=== PATIENT | male | born 1990 | race Caucasian/White ===

== ENCOUNTER 2016-08-09 18:02 | Emergency (ER) | payer OTHER ==
[2016-08-09 18:08] VITALS: RESP 16
--- NOTE | 2016-08-09 18:34 | ED ---
Psych HPI - General Chief Complaint: Psychiatric Symptoms Stated Complaint: suicidal Time Seen by Provider: 08/09/16 18:10 Source: patient, RN notes reviewed Mode of arrival: ambulatory - History of Present Illness Initial Comments: This is a 25-year-old male history depression and states she's feeling suicidal and depressed today. He states he just recently came off of locked down and couldn't see his sister or her kids. He denies any drugs or alcohol at this time he states he has a long history depression he does not seem to have a plan at this time. He states it's been especially bad last 2 weeks. MD Complaint: suicidal ideation, feels depressed - Related Data Home Medications Medication Instructions Recorded Confirmed DULoxetine HCL [Cymbalta] 60 mg PO DAILY 08/09/16 08/09/16 Gabapentin [Neurontin] 600 mg PO TID 08/09/16 08/09/16 HYDROcodone/APAP 5-325MG [[place] 1 tab PO Q8H PRN 08/09/16 08/09/16 5-325] Meloxicam [Mobic] 7.5 mg PO BID 08/09/16 08/09/16 PARoxetine [Paxil] 20 mg PO DAILY 08/09/16 08/09/16 Topiramate [Topamax] 50 mg PO BID PRN 08/09/16 08/09/16 clonazePAM [KlonoPIN] 0.5 mg PO Q12H 08/09/16 08/09/16 Allergies Allergy/AdvReac Type Severity Reaction Status Date / Time No Known Allergies Allergy Verified 08/09/16 18:08 Review of Systems ROS Statement: Those systems with pertinent positive or pertinent negative responses have been documented in the HPI. ROS Other: All systems not noted in ROS Statement are negative. Past Medical History Past Medical History: Fibromyalgia Additional Past Medical History / Comment(s): chronic back and neck pain History of Any Multi-Drug Resistant Organisms: None Reported Past Surgical History: No Surgical Hx Reported Past Anesthesia/Blood Transfusion Reactions: Unable to Obtain Past Psychological History: Depression Smoking Status: Current every day smoker Past Alcohol Use History: Occasional Past Drug Use History: Marijuana Additional Drug Use History / Comment(s): daily - Past Family History Mother Family Medical History: Cancer General Exam - General Exam Comments Initial Comments: This is a well-developed well-nourished awake alert oriented times 3 male Limitations: no limitations General appearance: alert, in no apparent distress Head exam: Present: atraumatic, normocephalic, normal inspection Eye exam: Present: normal appearance, PERRL, EOMI. Absent: scleral icterus, conjunctival injection, periorbital swelling ENT exam: Present: normal exam, mucous membranes moist Neck exam: Present: normal inspection. Absent: tenderness, meningismus, lymphadenopathy Respiratory exam: Present: normal lung sounds bilaterally. Absent: respiratory distress, wheezes, rales, rhonchi, stridor Cardiovascular Exam: Present: regular rate, normal rhythm, normal heart sounds. Absent: systolic murmur, diastolic murmur, rubs, gallop, clicks GI/Abdominal exam: Present: soft, normal bowel sounds. Absent: distended, tenderness, guarding, rebound, rigid Extremities exam: Present: normal inspection, full ROM, normal capillary refill. Absent: tenderness, pedal edema, joint swelling, calf tenderness Back exam: Present: normal inspection Neurological exam: Present: alert, oriented X3, CN II-XII intact Psychiatric exam: Present: depressed, flat affect, suicidal ideation Skin exam: Present: warm, dry, intact, normal color. Absent: rash Course Vital Signs 08/09/16 08/09/16 18:06 21:33 Temperature 97.9 F Pulse Rate 86 67 Respiratory 16 16 Rate Blood Pressure 130/79 124/59 O2 Sat by Pulse 100 Oximetry Medical Decision Making - Medical Decision Making Patient was evaluated by [facility] she'll be discharged he currently is on aerosol himself or anyone else. He is not suicidal - Lab Data Lab Results 08/09/16 Range/Units 19:00 Urine Opiates Screen Not Detected (NotDetected) Ur Oxycodone Screen Not Detected (NotDetected) Urine Methadone Screen Not Detected (NotDetected) Ur Propoxyphene Screen Not Detected (NotDetected) Ur Barbiturates Screen Not Detected (NotDetected) U Tricyclic Antidepress Not Detected (NotDetected) Ur Phencyclidine Scrn Not Detected (NotDetected) Ur Amphetamines Screen Not Detected (NotDetected) U Methamphetamines Scrn Not Detected (NotDetected) U Benzodiazepines Scrn Not Detected (NotDetected) Urine Cocaine Screen Not Detected (NotDetected) U Marijuana (THC) Screen Not Detected (NotDetected) Disposition Clinical Impression: Adjustment reaction Disposition: HOME SELF-CARE Condition: Good Instructions: Anxiety (ED)
[2016-08-09 23:45] VITALS: BP 130/76; PULSE 68; TEMP 97.3
== END 2016-08-09 23:58 | disposition home or self-care (01) ==
LOC: EC 18:02
DX: F43.20 Adjustment disorder, unspecified (principal); F32.9 Major depressive disorder, single episode, unspecified; R45.851 Suicidal ideations; M79.7 Fibromyalgia; F17.200 Nicotine dependence, unspecified, uncomplicated; Z79.899 Other long term (current) drug therapy
CPT/HCPCS: 80306; 82075; 99285

== ENCOUNTER 2016-08-12 22:30 | Emergency (ER) | payer OTHER ==
[2016-08-12 22:38] VITALS: RESP 18
[2016-08-13] MEDS ORDERED: AMOXIC-POT CLAV 875MG STARTER 2 EACH TABLET PO STA (00:03)
[2016-08-13] MEDS ORDERED: ACETAMINOPHEN TAB 500 MG TAB PO STA (00:03)
[2016-08-13] MEDS ORDERED: IBUPROFEN 600 MG STARTER PACK 4 TAB BTL PO STA (00:03)
[2016-08-13] MEDS ORDERED: FLUTICASONE 50MCG/SPRAY NASAL 16GM EA NOSTRIL STA (00:03)
--- NOTE | 2016-08-13 00:08 | ED ---
General Adult HPI - General Chief complaint: Fever Stated complaint: Dehydration/Sick Time Seen by Provider: 08/12/16 23:45 Source: patient, RN notes reviewed Mode of arrival: ambulatory Limitations: no limitations - History of Present Illness Initial comments: Patient 25-year-old male who presents emergency room today with a chief complaint of cough congestion and increased rhinorrhea in bilateral ear pain over the last 3 days. Patient does admit to a sore throat as well. States it hurts with swallows. Patient does admit to cough with positive sputum production. admits to feeling dizzy lightheaded at times. Denies any other complaints. patient unaware temperature at triage.patient admits to bodyaches. Patient denies any recent shortness of breath, chest pain, back pain, abdominal pain, nausea or vomiting, numbness or tingling, dysuria or hematuria, constipation or diarrhea, headaches or visual changes, or any other complaints. - Related Data Home Medications Medication Instructions Recorded Confirmed DULoxetine HCL [Cymbalta] 60 mg PO DAILY 08/09/16 08/09/16 Gabapentin [Neurontin] 600 mg PO TID 08/09/16 08/09/16 HYDROcodone/APAP 5-325MG [[place] 1 tab PO Q8H PRN 08/09/16 08/09/16 5-325] Meloxicam [Mobic] 7.5 mg PO BID 08/09/16 08/09/16 PARoxetine [Paxil] 20 mg PO DAILY 08/09/16 08/09/16 Topiramate [Topamax] 50 mg PO BID PRN 08/09/16 08/09/16 clonazePAM [KlonoPIN] 0.5 mg PO Q12H 08/09/16 08/09/16 Previous Rx's Medication Instructions Recorded Acetaminophen Tab [Tylenol] 1,000 mg PO TID 5 Days 08/13/16 Amoxicillin/Potassium Clav 1 each PO Q12HR #20 tab 08/13/16 [Augmentin 875-125 Tablet] Fluticasone Propionate [Flonase 1 - 2 spray EA NOSTRIL DAILY 5 Days 08/13/16 Allergy Relief] Ibuprofen [Motrin] 600 mg PO Q6HR PRN #40 day 08/13/16 Allergies Allergy/AdvReac Type Severity Reaction Status Date / Time No Known Allergies Allergy Verified 08/12/16 22:38 Review of Systems ROS Statement: Those systems with pertinent positive or pertinent negative responses have been documented in the HPI. ROS Other: All systems not noted in ROS Statement are negative. Past Medical History Past Medical History: Fibromyalgia Additional Past Medical History / Comment(s): chronic back and neck pain History of Any Multi-Drug Resistant Organisms: None Reported Past Surgical History: No Surgical Hx Reported Past Anesthesia/Blood Transfusion Reactions: Unable to Obtain Past Psychological History: Depression Smoking Status: Current every day smoker Past Alcohol Use History: None Reported Past Drug Use History: None Reported Additional Drug Use History / Comment(s): daily - Past Family History Mother Family Medical History: Cancer General Exam - General Exam Comments Initial Comments: General: The patient is awake and alert, in no distress, and does not appear acutely ill. Eye: Pupils are equal, round and reactive to light, extra-ocular movements are intact. No nystagmus. There is normal conjunctiva bilaterally. No signs of icterus. Ears, nose, mouth and throat: There are moist mucous membranes and no oral lesions. posterior pharynx clear no sign of exudate. Uvula midline. Patient swallows without difficulty. Patient does have increased redness erythema to the left ear with decreased bony landmarks. Right TM clear. Does have tenderness over the left maxillary sinus. Neck: The neck is supple, there is no tenderness or JVD. Cardiovascular: There is a regular rate and rhythm. No murmur, rub or gallop is appreciated. Respiratory: Lungs are clear to auscultation, respirations are non-labored, breath sounds are equal. No wheezes, stridor, rales, or rhonchi. Gastrointestinal: Soft, non-distended, non-tender abdomen without masses or organomegaly noted. There is no rebound or guarding present. No CVA tenderness. Bowel sounds are unremarkable. Musculoskeletal: Normal ROM, no tenderness. Strength 5/5. Sensation intact. Pulses equal bilaterally 2+. Neurological: A&O x 3. CN II-XII intact, There are no obvious motor or sensory deficits. Coordination appears grossly intact. Speech is normal. Skin: Skin is warm and dry and no rashes or lesions are noted. Psychiatric: Cooperative, appropriate mood & affect, normal judgment. Limitations: no limitations Course Vital Signs 08/12/16 08/13/16 08/13/16 22:36 00:11 00:36 Temperature 102.9 F H 102.5 F H Pulse Rate 137 H 115 H 110 H Respiratory 18 18 18 Rate Blood Pressure 115/58 118/69 129/75 O2 Sat by Pulse 96 97 97 Oximetry Disposition Clinical Impression: Acute sinusitis Disposition: HOME SELF-CARE Condition: Good Instructions: Sinusitis (ED) Additional Instructions: Please use medication as discussed. Please follow-up with family doctor in the next 2 days of symptoms have not improved. Please return to emergency room if the symptoms increase or worsen or for any other concerns. Prescriptions: Acetaminophen Tab [Tylenol] 1,000 mg PO TID 5 Days Amoxicillin/Potassium Clav [Augmentin 875-125 Tablet] 1 each PO Q12HR #20 tab Fluticasone Propionate [Flonase Allergy Relief] 1 - 2 spray EA NOSTRIL DAILY 5 Days Ibuprofen [Motrin] 600 mg PO Q6HR PRN #40 day PRN Reason: Pain Referrals: Tomy Salinas MD [Primary Care Provider] - 1-2 days Time of Disposition: 00:06
[2016-08-13 00:38] VITALS: BP 129/75; PULSE 110; TEMP 102.5
== END 2016-08-13 00:48 | disposition home or self-care (01) ==
LOC: EC 22:30
DX: J01.90 Acute sinusitis, unspecified (principal); M79.7 Fibromyalgia; F32.9 Major depressive disorder, single episode, unspecified; G89.29 Other chronic pain; F17.200 Nicotine dependence, unspecified, uncomplicated; Z79.1 Long term (current) use of non-steroidal anti-inflammatories (NSAID); Z79.899 Other long term (current) drug therapy
CPT/HCPCS: 99283

== ENCOUNTER → 2017-06-03 | Outpatient (CLI) | payer OTHER ==
--- NOTE | 2017-06-03 14:14 | XR ---
EXAMINATION TYPE: XR knee complete RT DATE OF EXAM: 06/03/2017 COMPARISON: NONE HISTORY: Pain TECHNIQUE: Four views are submitted. FINDINGS: Joint spaces are preserved. Osseous structures are intact. No acute fracture seen. IMPRESSION: 1. No acute fracture or dislocation.
--- NOTE | 2017-06-03 14:16 | XR ---
EXAM TYPE: LUMBAR SPINE X RAY SERIES COMPARISON: NONE HISTORY: Pain TECHNIQUE: 4 views are submitted. FINDINGS: Alignment is anatomic. The pedicles are intact. The transverse processes are intact. There is no s pondylolysis or spondylolisthesis. Facet arthropathy L5-S1. IMPRESSION: 1. Facet arthropathy L5-S1.
--- NOTE | 2017-06-03 14:17 | XR ---
EXAMINATION TYPE: XR thoracic spine 2V DATE OF EXAM: 06/03/2017 COMPARISON: NONE HISTORY: Back pain Alignment is anatomic. There is no compression deformities. Hypertrophic change and degenerative dis c disease at the mid and lower thoracic spine. Curvature the spine noted. IMPRESSION: 1. Multilevel degenerative disc disease.
== END | disposition home or self-care (01) ==
LOC: RADXRMAIN 13:31
PROVIDERS: ATTEND Family Medicine
DX: M51.34 Other intervertebral disc degeneration, thoracic region (principal); M46.97 Unspecified inflammatory spondylopathy, lumbosacral region; M25.561 Pain in right knee
CPT/HCPCS: 72070; 72110

== ENCOUNTER → 2020-01-09 | Outpatient (CLI) | payer OTHER | END | disposition home or self-care (01) | LOC: LABWHC1 09:56 | PROVIDERS: ATTEND Nurse Practitioner Family | DX: R51.9 Headache, unspecified (principal); R05 Cough; R50.9 Fever, unspecified; R53.83 Other fatigue | CPT/HCPCS: U0003; C9803 ==

== ENCOUNTER 2020-01-30 18:22 | Emergency (ER) | payer OTHER ==
[2020-01-30 18:29] VITALS: TEMP 98.9
--- NOTE | 2020-01-30 20:07 | ED ---
General Adult HPI - General Chief complaint: Shortness of Breath Stated complaint: Rib Pain Inquicker Time Seen by Provider: 01/30/20 19:11 Source: patient, RN notes reviewed, old records reviewed Mode of arrival: ambulatory Limitations: no limitations - History of Present Illness Initial comments: 29-year-old male patient comes to ED for evaluation of cough. Patient reports that he has had a cough essentially for one month. He reports that about 4 days given his coughing and felt a pop in his right posterior rib region. He is not having tenderness to the region and pain when laying. States that his cough is productive. Denies shortness of breath. Denies any other acute complaints. Systemic: Pt denies fatigue, fever/chills, rash. Pt denies weakness, night sweats, weight loss. Neuro: Pt denies headache, visual disturbances, syncope or pre-syncope. HEENT: Pt denies ocular discharge or irritation, otalgia, rhinorrhea, pharyngi tis or notable lymphadenopathy. Cardiopulmonary: Pt denies chest pain, SOB, heart palpitations, dyspnea on exertion. Abdominal/GI: Pt denies abdominal pain, n/v/d. : Pt denies dysuria, burning w/ urination, frequency/urgency. Denies new onset urinary or bowel incontinence. MSK: Pt denies myalgia, loss of strength or function in extremities. Neuro: Pt denies new onset weakness, paresthesias. - Related Data Home Medications Medication Instructions Recorded Confirmed DULoxetine HCL [Cymbalta] 60 mg PO DAILY 08/09/16 03/30/17 Gabapentin [Neurontin] 600 mg PO TID 08/09/16 03/30/17 Meloxicam [Mobic] 7.5 mg PO BID 08/09/16 03/30/17 Topiramate [Topamax] 50 mg PO BID PRN 08/09/16 03/30/17 clonazePAM [KlonoPIN] 0.5 mg PO Q12H 08/09/16 03/30/17 Previous Rx's Medication Instructions Recorded Dicyclomine [Bentyl] 20 mg PO TID PRN #20 tablet 03/30/17 Albuterol Inhaler [Ventolin Hfa 1 puff INHALATION RT-QID PRN #1 01/30/20 Inhaler] inhaler Azithromycin [Zithromax Z-pack (6 0 mg PO DIRECTED #6 tab 01/30/20 tabs)] methylPREDNISolone Dose Pack 4 mg PO DIRECTED #21 package 01/30/20 [Medrol Dose Pack] Allergies Allergy/AdvReac Type Severity Reaction Status Date / Time No Known Allergies Allergy Verified 01/30/20 18:29 Review of Systems ROS Statement: Those systems with pertinent positive or pertinent negative responses have been documented in the HPI. ROS Other: All systems not noted in ROS Statement are negative. Past Medical History Past Medical History: Fibromyalgia Additional Past Medical History / Comment(s): chronic back and neck pain, lupus History of Any Multi-Drug Resistant Organisms: None Reported Past Surgical History: No Surgical Hx Reported Past Anesthesia/Blood Transfusion Reactions: Unable to Obtain Past Psychological History: Depression Smoking Status: Current every day smoker Past Alcohol Use History: None Reported Past Drug Use History: None Reported - Past Family History Mother Family Medical History: Cancer General Exam - General Exam Comments Initial Comments: Constitutional: NAD, AOX3, Pt has pleasant affect. HEENT: NC/AT, trachea midline, neck supple, no lymphadenopathy. Posterior pharynx non erythematous, without exudates. External ears appear normal, without discharge. Mucous membranes moist. Eyes PERRLA, EOM intact. There is no scleral icterus. No pallor noted. Cardiopulmonary: RRR, no murmurs, rubs or gallops, no JVD noted. Lungs CTAB in anterior and posterior [place]. No peripheral edema. right RIBS mildly tender to palpation posterior axillary line. Abdominal exam: Abdomen soft and non-distended. Abdomen non-tender to palpation in all 4 quadrants. Bowel sounds active in LLQ. No hepatosplenomegaly. No ecchymosis Neuro: CN II-XII grossly intact. No nuchal rigidity. No raccon eyes, no sanchez sign, no hemotympanum. No cervical spinal tenderness. MSK: No posterior calf tenderness bilaterally, homans sign negative bilaterally. Posterior tibialis and radial pulse +2 bilaterally. Sensation intact in upper and lower extremities. Full active ROM in upper and lower extremities, 5/5 stregnth. Limitations: no limitations Course Vital Signs 01/30/20 18:27 Temperature 98.9 F Pulse Rate 97 Respiratory 18 Rate Blood Pressure 138/87 O2 Sat by Pulse 97 Oximetry Medical Decision Making - Medical Decision Making 29-year-old male patient ED for evaluation. Patient reports this had a cough for a month. Reports that he days ago while coughing he felt a pop and having some right lateral rib pain ever since. States that the cough is productive. Plain films are negative. The investigations are non-impressive. EKG is nonischemic. Physical exam does display right rib tenderness reproducible. Patient is PERC negative. Patient be treated with steroids and antibiotics when necessary inhaler to use as needed. Tested for coronavirus. Will self quarentine until results. Will follow up with PCP tomorrow. Will return to ED with any worsening symptoms. Case discussed with Dr. Banks. - Lab Data Result diagrams: 01/30/20 20:00 01/30/20 20:00 Lab Results 01/30/20 01/30/20 Range/Units 20:00 20:00 WBC 7.1 (3.8-10.6) k/uL RBC 5.22 (4.30-5.90) m/uL Hgb 15.9 (13.0-17.5) gm/dL Hct 47.9 (39.0-53.0) % MCV 91.6 (80.0-100.0) fL MCH 30.5 (25.0-35.0) pg MCHC 33.3 (31.0-37.0) g/dL RDW 12.1 (11.5-15.5) % Plt Count 242 (150-450) k/uL Neutrophils % 46 % Lymphocytes % 38 % Monocytes % 7 % Eosinophils % 5 % Basophils % 2 % Neutrophils # 3.3 (1.3-7.7) k/uL Lymphocytes # 2.7 (1.0-4.8) k/uL Monocytes # 0.5 (0-1.0) k/uL Eosinophils # 0.3 (0-0.7) k/uL Basophils # 0.2 (0-0.2) k/uL Sodium 137 (137-145) mmol/L Potassium 4.3 (3.5-5.1) mmol/L Chloride 108 H (98-107) mmol/L Carbon Dioxide 20 L (22-30) mmol/L Anion Gap 9 mmol/L BUN 18 (9-20) mg/dL Creatinine 1.02 (0.66-1.25) mg/dL Est GFR (CKD-EPI)AfAm >90 (>60 ml/min/1.73 sqM) Est GFR (CKD-EPI)NonAf >90 (>60 ml/min/1.73 sqM) Glucose 99 (74-99) mg/dL Calcium 9.8 (8.4-10.2) mg/dL Total Bilirubin 0.7 (0.2-1.3) mg/dL AST 27 (17-59) U/L ALT 23 (4-49) U/L Alkaline Phosphatase 80 (38-126) U/L Total Protein 7.8 (6.3-8.2) g/dL Albumin 4.8 (3.5-5.0) g/dL - EKG Data -: EKG Interpreted by Me (and Dr. Banks ) EKG Comments: Ventricular rate 75, DC interval 154, QRS 96, QT/QTc 364/406. Normal sinus rhythm, normal EKG, no concern for acute ischemia. Disposition Clinical Impression: Cough Disposition: HOME SELF-CARE Condition: Stable Instructions (If sedation given, give patient instructions): Acute Bronchitis (ED) Additional Instructions: Follow up with PCP tomorrow. Take antibiotics, steroids as directed. Return to ED with any worsening symptoms. Use breathing treatment as needed. Prescriptions: methylPREDNISolone Dose Pack [Medrol Dose Pack] 4 mg PO DIRECTED #21 package Albuterol Inhaler [Ventolin Hfa Inhaler] 1 puff INHALATION RT-QID PRN #1 inhaler PRN Reason: wheezing Azithromycin [Zithromax Z-pack (6 tabs)] 0 mg PO DIRECTED #6 tab Is patient prescribed a controlled substance at d/c from ED?: No Referrals: Tomy Salinas MD [Primary Care Provider] - 1-2 days
[2020-01-30 20:10] LABS: Basophils # (A) 0.2 k/uL (0-0.2); Basophils % (A) 2 %; Eosinophils # (A) 0.3 k/uL (0-0.7); Eosinophils % (A) 5 %; HCT 47.9 % (39.0-53.0); HGB 15.9 gm/dL (13.0-17.5); Lymphocytes # (A) 2.7 k/uL (1.0-4.8); Lymphocytes % (A) 38 %; MCH 30.5 pg (25.0-35.0); MCHC 33.3 g/dL (31.0-37.0); MCV 91.6 fL (80.0-100.0); Mean Platelet Volume 6.9; Monocytes # (A) 0.5 k/uL (0-1.0); Monocytes % (A) 7 %; Neutrophils # (A) 3.3 k/uL (1.3-7.7); Neutrophils % (A) 46 %; Platelet Count 242 k/uL (150-450); RBC 5.22 m/uL (4.30-5.90); RDW 12.1 % (11.5-15.5); WBC 7.1 k/uL (3.8-10.6)
[2020-01-30 20:21] LABS: ALT 23 U/L (4-49); AST 27 U/L (17-59); African American GFR (CKD) >90 (>60 ml/min/1.73 sqM); Albumin 4.8 g/dL (3.5-5.0); Alkaline Phosphatase 80 U/L (38-126); Anion Gap 9 mmol/L; Blood Urea Nitrogen 18 mg/dL (9-20); Calcium 9.8 mg/dL (8.4-10.2); Carbon Dioxide 20 mmol/L (22-30); Chloride 108 mmol/L (98-107); Glucose 99 mg/dL (74-99); Non-African American GFR(CKD) >90 (>60 ml/min/1.73 sqM); Potassium 4.3 mmol/L (3.5-5.1); Sodium 137 mmol/L (137-145); Total Bilirubin 0.7 mg/dL (0.2-1.3); Total Protein 7.8 g/dL (6.3-8.2)
--- NOTE | 2020-01-30 20:43 | XR ---
EXAMINATION TYPE: XR chest 2V DATE OF EXAM: 01/30/2020 COMPARISON: 03/04/2013 HISTORY: Cough TECHNIQUE: FINDINGS: Heart and mediastinum are normal. Lungs are clear. Diaphragm is normal. Bony thorax appears normal. IMPRESSION: Normal chest. No change.
--- NOTE | 2020-01-30 20:44 | XR ---
EXAMINATION TYPE: XR ribs RT DATE OF EXAM: 01/30/2020 COMPARISON: NONE HISTORY: Cough. Right-sided rib pain TECHNIQUE: 4 views FINDINGS: There is no pleural effusion or pneumothorax. Right lung is clear. There is no sign of a ri b fracture. IMPRESSION: Negative right rib exam.
[2020-01-30] MEDS ORDERED: AZITHROMYCIN 500 MG TAB PO STA (21:23)
[2020-01-30 21:52] VITALS: BP 132/93; PULSE 70; RESP 16
== END 2020-01-30 21:52 | disposition home or self-care (01) ==
LOC: EC 18:22
DX: R05 Cough (principal); R07.81 Pleurodynia; M79.7 Fibromyalgia; F32.9 Major depressive disorder, single episode, unspecified; F17.200 Nicotine dependence, unspecified, uncomplicated; Z79.1 Long term (current) use of non-steroidal anti-inflammatories (NSAID); Z79.899 Other long term (current) drug therapy; Z20.828 Contact with and (suspected) exposure to other viral communicable diseases
CPT/HCPCS: 36415; 93005; 80053; 85025; 71100; 71046; 99285; U0003

== ENCOUNTER → 2020-08-13 | Outpatient (CLI) | payer OTHER ==
--- NOTE | 2020-08-13 12:22 | XR ---
EXAMINATION TYPE: XR chest 2V DATE OF EXAM: 08/13/2020 COMPARISON: 01/30/2020 TECHNIQUE: PA and lateral views submitted. HISTORY: Cough and congestion FINDINGS: The lungs are clear and there is no pneumothorax, pleural effusion, or focal pneumonia. Soft tissue artifacts suspected overlying the lateral margin of the right lung. Heart size normal. No overt fail ure. Hypertrophic change of the spine. IMPRESSION: 1. No acute process.
== END | disposition home or self-care (01) ==
LOC: RADXRMAIN 12:01
PROVIDERS: ATTEND Family Medicine
DX: R05 Cough (principal); R09.89 Other specified symptoms and signs involving the circulatory and respiratory systems
CPT/HCPCS: 71046